=== PATIENT | female | born 1970 | race Two or more races ===

== ENCOUNTER 2021-08-06 20:56 | Emergency (ER) | payer MEDICAID, OTHER ==
[~2021-08-06] VITALS: Ht 167.6 cm; Wt 59.0 kg
[2021-08-06 22:00] VITALS: BP 138/77
[2021-08-06] MEDS ORDERED: HYDROCODONE/APAP 5/325MG TABLET ONE (22:13)
[2021-08-06] MEDS ORDERED: KETOROLAC TROMETHAMINE INJ 30 MG/ML VIAL ONE (22:13)
[2021-08-06] MEDS: KETOROLAC TROMETHAMINE INJ 30 MG/ML VIAL IM ONE (22:21)
[2021-08-06] MEDS: HYDROCODONE/APAP 5/325MG TABLET PO ONE (22:21)
[2021-08-06] MEDS ORDERED: CYCL5TAB PO (23:01)
[2021-08-06] MEDS ORDERED: NAPR-1143 PO (23:01)
== END 2021-08-06 23:27 | disposition home or self-care (01) ==
LOC: ER 20:58
DX: S70.01XA Contusion of right hip, initial encounter (principal); S16.1XXA Strain of muscle, fascia and tendon at neck level, initial encounter; S39.012A Strain of muscle, fascia and tendon of lower back, initial encounter; M19.90 Unspecified osteoarthritis, unspecified site; Z98.51 Tubal ligation status; Z96.643 Presence of artificial hip joint, bilateral; Z79.1 Long term (current) use of non-steroidal anti-inflammatories (NSAID); Z79.899 Other long term (current) drug therapy; W18.30XA Fall on same level, unspecified, initial encounter; Y93.89 Activity, other specified; Y92.89 Other specified places as the place of occurrence of the external cause; Y99.8 Other external cause status
CPT/HCPCS: 71045; 72110; 72125; 73502; 96372; 99284; J1885